=== PATIENT | female | born 1980 | race Caucasian/White ===

== ENCOUNTER → 2016-06-14 | Outpatient (CLI) | payer BC ==
[~2016-06-14] MED LIST: PROPRANOLOL HCL40 MG PO; ZITHROMAX Z PA250 MG PO
[2016-06-14 17:10] LABS: HEMOGLOBIN 11.8 g/dL (12.2-16.2); LYMPH # 2.4 K/mm3 (0.7-4.5); LYMPH % 36.5 % (10-50.0)
--- NOTE | 2016-06-14 17:50 | RADIOLOGY REPORT PS360 ---
CHEST(2 VIEWS-NOT PORTABLE) HISTORY: Hypertension RECTAL BLEEDING, PRE OP XRAY, PT HAS HYPERTENSION ORDERING PHYSICIAN: PALLAVI BRENNAN PATIENT AGE: 35 years COMPARISON: 05/01/2016 FINDINGS: The cardiomediastinal silhouette and pulmonary vascularity are within normal limits. The lungs are clear without infiltrates, suspicious nodules, or pleural effusions. No acute bony abnormalities. IMPRESSION: Negative chest, no acute finding
[2016-06-14 19:13] LABS: BUN 11 mg/dL (7-18)
[2016-06-14 19:14] LABS: GFR (ESTIMATED) 112 ML/MIN (59-)
== END ==
LOC: LAB 16:52
PROVIDERS: Colon & Rectal Surgery
DX: K62.5 Hemorrhage of anus and rectum (principal)